=== PATIENT | female | born 1960 | race Caucasian/White ===

== ENCOUNTER 2022-02-19 09:06 | Emergency (ER) | payer SELFPAY ==
[2022-02-19 09:09] VITALS: BP 171/93; PULSE 16; RESP 82; TEMP 36.5; O2SAT 95; BMI 23.2
--- NOTE | 2022-02-19 09:31 | EDS_ITS ---
HPI History of Present Illness Chief Complaint: Lower Extremity Injury Narrative Narrative: 61-year-old female presenting with right knee pain. She states that she chronically has knee pain in the bilateral knees but over the last month her right knee has acutely worsened. She states that she can walk and she has a stable gait. She denies any trauma. She does report that her right knee clicks and pops when she walks. Its mildly swollen. She states that in the past she has received prednisone which helped her. She is on tramadol which is prescribed to her once daily. She is concerned she might run out of this because her pain is acutely worse over the last week. She states he has orthopedic appointment on March 02. She states that is at [facility]. PFSH PFS Home Medications prednisone 10 mg tablet 10 mg PO DAILY #30 tabs 02/19/22 [Rx Last Taken Unknown] tramadol 50 mg tablet 50 mg PO TID PRN pain #12 tabs 02/19/22 [Rx Last Taken Unknown] Allergy/AdvReac Type Severity Reaction Status Date / Time Sulfa (Sulfonamide AdvReac Other Verified 02/19/22 09:08 Antibiotics) ROS ROS ED Constitutional Constitutional ED: Denies chills, fever(s) or sweats Eyes Eyes: Denies blurry vision or change in vision ENT ENT ED: Denies ear pain or sore throat Cardiovascular Cardiovascular: Denies chest pain, palpitations or racing heartbeat Respiratory/Chest Respiratory/Chest: Denies cough, dyspnea or sputum Gastrointestinal Gastrointestinal: Denies abdominal pain, constipation, diarrhea, nausea or vomiting Genitourinary Genitourinary ED: Denies dysuria, hematuria or urinary frequency Musculoskeletal Musculoskeletal: Reports other Details: Right knee pain ; Denies myalgias or neck pain Integumentary Denies abscess, Abrasions or rash Neurologic Neurologic: Denies headache(s), paresthesias or weakness Psychiatric Psychiatric: Denies anxiety, depression, suicidal ideation or suicidal thoughts Endocrine Endocrinology: Denies polydipsia or polyuria EXAM Physical Exam Const Vital Signs: 02/19/22 09:09 Temperature 97.7 F L Temperature Source Temporal Pulse Rate 16 L Respiratory Rate 82 H Blood Pressure 171/93 H Blood Pressure Mean 119 Pulse Ox 95 Oxygen Delivery Method Room Air Positive well nourished General Appearance ED: NAD HEENT Reports moist mucous membranes normocephalic and atraumatic Neck full ROM Resp normal respiratory effort Cardio regular rate and regular rhythm Extremity Extremity Narrative: Tenderness palpation over the right knee lateral joint line. There is no significant edema. No erythema or warmth. No limitation of range of motion and certainly no short arc pain. Right side extensor mechanism is intact. Patient up and walking across the room without antalgic gait. Pain elicited with valgus and varus testing. No ligamentous laxity. MDM MDM MDM Narrative Medical decision making narrative: I did check the patient's [facility] report it does not seem that she does get tramadol regularly although she only gets 1 a day and she states she is in pain. She states that prednisone typically helps for this. I will prescribe her a taper as she said this helped her in the past. She does request some tramadol to bridge her to the weekend so she can get to her primary care doctor who prescribes her tramadol. I think this is reasonable since is a holiday weekend and she can get an appointment until the end she is also encouraged to follow-up with orthopedic surgeon. I suspect she has a meniscal tear. Impression: 1. Right knee meniscal tear 2. Acute exacerbation of chronic pain Lab Data Attestation: I reviewed the patient's lab results. Discharge Plan Triage Chief Complaint: Lower Extremity Injury ED Provider: Jameel Becker Dx/Rx/DC Orders Prescriptions: New prednisone 10 mg tablet 10 mg PO DAILY Qty: 30 0RF Rx Instructions: 6 tabs p.o. x2 days, 5 tabs p.o. x2 days, 4 tabs p.o. x2 days, 3 tabs p.o. x2 days, 2 tabs p.o. x2 days, 1 tab p.o. x2 days tramadol 50 mg tablet 50 mg PO TID PRN (Reason: pain) Qty: 12 0RF Primary Care Provider: Nneka Chavez Referrals: Nneka Chavez PA-C [Primary Care Provider] - Disposition Disposition: Home, Self Care
[2022-02-19] MEDS: predniSONE 20 MG Tablet 60 MG PO (09:40)
== END 2022-02-19 09:56 | disposition home or self-care (01) ==
PROVIDERS: Emergency Provider Student in an Organized Health Care Education/Training Program; PCP Family Medicine; Visit Provider Student in an Organized Health Care Education/Training Program
DX: S83.206A Unspecified tear of unspecified meniscus, current injury, right knee, initial encounter (principal); G89.29 Other chronic pain; M25.561 Pain in right knee; M25.562 Pain in left knee; X58.XXXA Exposure to other specified factors, initial encounter
CPT/HCPCS: 99283

== ENCOUNTER → 2024-10-18 | Outpatient (CLI) | payer MEDICARE, SELFPAY ==
[2024-10-18 13:44] LABS: Hematocrit 42.8 % (37-47); Hemoglobin 14.2 g/dL (12.0-15.0); Immature Granulocytes Count 0.180 X10^3/uL (0.0-0.0); Mean Corp Hgb Conc 33.2 g/dL (32-36); Mean Corpuscular Volume 98.8 fL (81-99); Mean Platelet Vol. 10.3 fl (6.2-12.0); NRBC Flagged by Analyzer 0 % (0-5); Platelet Count 329 K/mm3 (150-450); RBC Distribution Width CV 11.9 % (11.6-14.6); RBC Distribution Width SD 43.5 fl (35.1-43.9); Red Blood Count 4.33 M/mm3 (4.2-5.4); White Blood Count 10.1 K/mm3 (4.4-11.0)
[2024-10-18 14:43] LABS: AST(SGOT) 19 U/L (<=31); Alanine Aminotransfer ALT/SGPT 16 U/L (<=34); Albumin, Serum 4.4 g/dL (3.4-4.8); Alkaline Phosphatase 53 U/L (35-104); Anion Gap 12 (5-15); BUN 15 mg/dL (4-19); BUN/Creat Ratio 21.9 RATIO (10-20); Calcium,Total 9.2 mg/dL (7.6-11.0); Carbon Dioxide 24.5 mmol/L (21.0-32.0); Chloride 101 mmol/L (98-108); Free T3 2.3 pg/mL (2.18-3.98); Globulin 2.6 g/dL (2.2-4.2); Glucose 101 mg/dL (70-99); Potassium 4.0 mmol/L (3.3-5.1)
== END | disposition home or self-care (01) ==
PROVIDERS: PCP Family Medicine; Referring Provider Student in an Organized Health Care Education/Training Program; Visit Provider Student in an Organized Health Care Education/Training Program
DX: F32.9 Major depressive disorder, single episode, unspecified (principal)
CPT/HCPCS: 36415; 80053; 84439; 84443; 84481; 85025

== ENCOUNTER → 2024-12-27 | Outpatient (CLI) | payer MEDICARE, SELFPAY ==
[2024-12-27 16:07] LABS: Lithium 0.25 mmol/L (0.60-1.20)
== END | disposition home or self-care (01) ==
LOC: MTLAB 11:14
PROVIDERS: PCP Family Medicine; Referring Provider Student in an Organized Health Care Education/Training Program; Visit Provider Student in an Organized Health Care Education/Training Program
DX: F32.A Depression, unspecified (principal)
CPT/HCPCS: 36415; 80178